=== PATIENT | female | born 1995 | race Caucasian/White ===

== ENCOUNTER 2019-03-01 15:39 | Inpatient (IN) ==
[2019-03-01] MEDS ORDERED: THIAMINE INJ 100 MG, FOLIC ACID INJ 1 MG, MULTIVITAMIN INJ 10 ML in SODIUM CHLORIDE 0.9... IV ONE (17:32)
[2019-03-01] MEDS ORDERED: MAGNESIUM SULF RIDER 2 GM in PREMIX 1 EACH IV PRN (17:33)
[2019-03-01] MEDS ORDERED: MAGNESIUM SULF RIDER 4 GM in PREMIX 1 EACH IV PRN (17:33)
[2019-03-01] MEDS ORDERED: DOCUSATE SODIUM 100 MG CAPSULE PO PRN (17:37)
[2019-03-01] MEDS: chlordiazePOXIDE 25 MG CAPSULE PO SCH (18:16)
[2019-03-01 18:23] LABS: Basophils % 0.4 % (0.0-0.8); Eosinophils # 0.1 10*3/uL (0.0-0.87); Eosinophils % 1.2 % (0.00-10.9); Hematocrit 38.2 VOL% (35.7-47.0); Hemoglobin 12.5 GM/DL (12.0-16.0); Immature Granulocytes % 0.4 %; Immature Granulocytes Absolute 0.03 #; Lymphocytes # 2.3 10*3/uL (1.4-4.0); Lymphocytes % 30.5 % (21.3-54.2); Mean Corpuscular HGB Conc 32.7 GM/DL (32-36); Mean Corpuscular Volume 93.9 FL (87-102); Mean Platelet Volume 11.5 FL (9.6-12.0); Monocytes % 7.4 % (1.7-12.7); Neutrophils % 60.1 % (38.7-73.9); Platelet Count 246 T/CUMM (130-400); Red Blood Count 4.07 MC/CUMM (3.8-5.5); Red Cell Distribution Width 12.7 % (9.3-17.3); White Blood Count 7.4 T/CUMM (4-12)
[2019-03-01] MEDS: BUPRENORPHINE SL TAB 2 MG TABLET SL SCH (18:34)
[2019-03-01] MEDS: GABAPENTIN 300 MG CAPSULE PO SCH (18:34)
[2019-03-01] MEDS: DICYCLOMINE 10 MG CAPSULE PO PRN (18:39)
[2019-03-01 18:42] LABS: Albumin 3.7 G/DL (3.4-5.0); Bilirubin,Total 0.4 MG/DL (0.2-1.0); Calcium 8.2 MG/DL (8.5-10.1); Osmolality,Calculated 287.8 MOS/KG (273-304); Total Protein 6.9 G/DL (6.4-8.3)
[2019-03-01] MEDS: POTASSIUM CHLORIDE 20 MEQ TABLET PO PRN ×2 (20:35→22:35)
[2019-03-01] MEDS: ENOXAPARIN 40 MG/0.4 ML SYRINGE SUBCUT SCH (20:39)
[2019-03-01] MEDS: HydrOXYzine PAMOATE 25 MG CAPSULE PO PRN (20:44)
[2019-03-01] MEDS: LORazepam 2 MG/1 ML VIAL IV PRN (22:38)
[2019-03-02] MEDS: POTASSIUM CHLORIDE 20 MEQ TABLET PO PRN (00:10)
[2019-03-02] MEDS: chlordiazePOXIDE 25 MG CAPSULE PO SCH ×4 (00:10→17:32)
[2019-03-02] MEDS: BUPRENORPHINE SL TAB 2 MG TABLET SL SCH ×3 (01:45→17:33)
[2019-03-02] MEDS: GABAPENTIN 300 MG CAPSULE PO SCH ×3 (01:45→17:33)
[2019-03-02] MEDS: ONDANSETRON 4 MG/2 ML VIAL IV PRN (13:08)
[2019-03-02] MEDS: HydrOXYzine PAMOATE 25 MG CAPSULE PO PRN (18:33)
[2019-03-02] MEDS: LORazepam 2 MG/1 ML VIAL IV PRN (21:05)
[2019-03-02] MEDS: ENOXAPARIN 40 MG/0.4 ML SYRINGE SUBCUT SCH (21:08)
[2019-03-03] MEDS: DICYCLOMINE 10 MG CAPSULE PO PRN (00:25)
[2019-03-03] MEDS: HydrOXYzine PAMOATE 25 MG CAPSULE PO PRN ×2 (00:25→20:56)
[2019-03-03] MEDS: chlordiazePOXIDE 25 MG CAPSULE PO SCH ×3 (02:15→20:57)
[2019-03-03] MEDS: GABAPENTIN 300 MG CAPSULE PO SCH ×3 (02:15→17:45)
[2019-03-03] MEDS: BUPRENORPHINE SL TAB 2 MG TABLET SL SCH ×3 (02:15→17:45)
[2019-03-03] MEDS: METHOCARBAMOL 750 MG TABLET PO PRN (14:40)
[2019-03-03] MEDS ORDERED: LORazepam 2 MG/1 ML VIAL IV PRN (16:14)
[2019-03-03] MEDS: ENOXAPARIN 40 MG/0.4 ML SYRINGE SUBCUT SCH (20:57)
[2019-03-04] MEDS: GABAPENTIN 300 MG CAPSULE PO SCH ×3 (02:20→17:35)
[2019-03-04] MEDS: BUPRENORPHINE SL TAB 2 MG TABLET SL SCH (05:45)
[2019-03-04] MEDS: chlordiazePOXIDE 25 MG CAPSULE PO SCH ×2 (10:12→15:05)
[2019-03-04] MEDS: METHOCARBAMOL 750 MG TABLET PO PRN ×3 (10:21→22:55)
[2019-03-04] MEDS: HydrOXYzine PAMOATE 25 MG CAPSULE PO PRN (11:45)
[2019-03-04] MEDS: cloNIDine 0.1 MG TABLET PO PRN ×2 (11:45→18:00)
[2019-03-04] MEDS: ENOXAPARIN 40 MG/0.4 ML SYRINGE SUBCUT SCH (22:24)
[2019-03-04] MEDS: SERTRALINE 50 MG TABLET PO SCH (22:24)
[2019-03-05] MEDS: GABAPENTIN 300 MG CAPSULE PO SCH ×3 (02:30→17:01)
[2019-03-05] MEDS: SERTRALINE 50 MG TABLET PO SCH (08:19)
[2019-03-05] MEDS: HydrOXYzine PAMOATE 25 MG CAPSULE PO PRN ×2 (08:31→17:01)
[2019-03-05] MEDS: METHOCARBAMOL 750 MG TABLET PO PRN (09:07)
[2019-03-05] MEDS: ONDANSETRON 4 MG/2 ML VIAL IV PRN (09:07)
[2019-03-05 16:25] VITALS: BP 115/70
== END 2019-03-05 17:35 | disposition home or self-care (01) | DRG 897 ==
LOC: SUATTDRO 16:13 → N.4E 16:13
PROVIDERS: ADMIT Family Medicine; ATTEND Family Medicine